=== PATIENT | female | born 1940 ===

== ENCOUNTER 2018-04-13 05:30 | Day surgery (SDC) | payer OTHER ==
[~2018-04-13 05:30] MED LIST: CALCIO PO; IRBESARTAN150 MG PO; METOPROLOL SUCC50 MG PO; PRILOSEC OTC20 MG PO; ZOCOR PO; [UNRECOGNIZED DRUG - OTHER] PO
[2018-04-13] MEDS ORDERED: MACROBID 100 M100 MG PO (09:00)
[2018-04-13] MEDS ORDERED: ULTRACET PO (09:01)
== END 2018-04-13 11:10 | disposition home or self-care (01) ==
LOC: CIR.AMB 05:30
DX: N81.3 Complete uterovaginal prolapse (principal)

== ENCOUNTER 2020-06-19 07:35 | Day surgery (SDC) | payer OTHER ==
[~2020-06-19 07:35] MED LIST changes: +MACROBID 100 M100 MG PO; +PROTECT CARDIO1 EAC1 PO; +SIMVASTA PO; +ULTRACET PO; +VALSARTAN80 MG PO; +[UNRECOGNIZED DRUG - OTHER]
[2020-06-19] MEDS ORDERED: ULTRACET PO (11:45)
[2020-06-19] MEDS ORDERED: MACROBID 100 M100 MG PO (11:45)
== END 2020-06-19 15:40 | disposition home or self-care (01) ==
LOC: CIR.AMB 07:35 → ADM 10:00 → CIR.AMB 15:40
PROVIDERS: ATTEND Obstetrics & Gynecology Gynecology
DX: N81.3 Complete uterovaginal prolapse (principal); Z20.828 Contact with and (suspected) exposure to other viral communicable diseases